=== PATIENT | female | born 1955 | race Caucasian/White ===

== ENCOUNTER → 2017-05-19 | Outpatient (CLI) | payer OTHER ==
[~2017-05-19] MED LIST: METO10TA82 PO; METO25TA91 PO; NAPR375T5 PO; OXYC-306 PO
== END | disposition home or self-care (01) ==
LOC: CARD 08:42
PROVIDERS: ATTEND Internal Medicine Cardiovascular Disease
DX: I48.0 Paroxysmal atrial fibrillation (principal)
CPT/HCPCS: 93017